=== PATIENT | female | born 1960 | race Caucasian/White ===

== ENCOUNTER → 2017-05-14 | Outpatient (CLI) | payer OTHER ==
--- NOTE | 2017-05-14 12:55 | WWHP ---
[facility] - HISTORY AND PHYSICAL DATE OF SERVICE: 05/14/2017 CHIEF COMPLAINT: The patient is here for her routine gynecologic exam. HPI: This is a 56-year-old G2, P-0-2-0 with an LMP of 06/2016. She states prior to her LMP, her menses were becoming less frequent. She has also been experiencing hot flashes during the last 1 to 2 years. She denies any vaginal bleeding since June of this year. PAST MEDICAL HISTORY: Elevated cholesterol. MEDICATIONS: 1. Lipitor 1 daily. 2. Vitamin D 1000 units every other day. ALLERGIES: No known drug allergies. PAST SURGICAL HISTORY: Colonoscopy in 2013, voluntary termination of x2. PAST TAX LAWYER HISTORY: She has no history of STDs. SOCIAL HISTORY: She previously rarely smokes cigarettes, but now denies any cigarette smoking. She has about 1 to 3 alcohol containing drinks per day and occasionally uses marijuana. She denies any other drug use. She is single and has been with her boyfriend for about 8 months, but does not live with him. She states they do not have sexual intercourse, but are sexual in other ways. 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 FAMILY HISTORY: Father had Parkinson's disease. Mother has diabetes and some memory problems. Uncle had renal failure. REVIEW OF SYSTEMS: She has lost about 11 pounds and she believes this has been from some dietary changes. She denies respiratory, cardiac or GI problems. PHYSICAL EXAM: Blood pressure 120/79, height 5 feet 2 inches, weight 146 pounds, BMI 27. Temperature 98.2, pulse 76. This is a well-developed, well-nourished, white female, who is alert and oriented x3, in no acute distress. HEENT is within normal limits. NECK: Supple without mass or thyromegaly. CHEST AND LUNGS: Clear to auscultation. HEART: Regular rate and rhythm. Breasts are without mass or discharge. Axillary exam is negative for adenopathy. Back negative for CVA tenderness. ABDOMEN: Soft, nontender, without palpable masses. PELVIC EXAM: External genitalia reveals mild atrophy without lesions. Cervix and vagina reveals mild atrophy without lesions. The cervix appears nulliparous and is slightly stenotic. There is no evidence of prolapse. Bimanual exam, the uterus is mid position nongravid size and nontender. There are no palpable adnexal masses or tenderness. Rectovaginal exam is negative for mass or tenderness and is negative for occult blood. EXTREMITIES: Nontender. IMPRESSION: A 56-year-old female in early menopause with normal gynecologic exam. PLAN: 1. Pap smear was performed. 2. Self breast examination was discussed. 3. Mammogram will be done today. 4. Osteoporosis prevention was discussed. 5. She was instructed to call if she has any periods or vaginal bleeding from here on out. 6. She will return in 1 year. MMODL / IJN: [id number] /
--- NOTE | 2017-05-15 14:35 | MM ---
Reason for exam: screening (asymptomatic). Last mammogram was performed 1 year and 1 month ago. History: Patient is nulliparous. Benign left breast aspiration of the left breast, September 15, 2013. Physical Findings: A clinical breast exam by your physician is recommended on an annual basis and results should be correlated with mammographic findings. MG Screening Mammo w CAD Bilateral CC and MLO view(s) were taken. Prior study comparison: April 18, 2016, bilateral MG diagnostic mammo w CAD [facility]. September 08, 2014, bilateral MG diagnostic mammo w CAD [facility]. September 01, 2013, CAD bilateral diagnostic mammogram. The breast tissue is heterogeneously dense. This may lower the sensitivity of mammography. Finding: There is a typically benign stable mass in the left breast dating back to 2013. No suspicious abnormality. No significant changes in finding since April 18, 2016, September 08, 2014, and September 01, 2013. ASSESSMENT: Benign, BI-RAD 2 RECOMMENDATION: Routine screening mammogram of both breasts in 1 year.
== END | disposition home or self-care (01) ==
LOC: WWCWWP 10:35
PROVIDERS: ATTEND Obstetrics & Gynecology
DX: Z12.31 Encounter for screening mammogram for malignant neoplasm of breast (principal)

== ENCOUNTER → 2018-10-20 | Outpatient (CLI) | payer OTHER ==
--- NOTE | 2018-10-22 11:48 | MM ---
Reason for exam: screening (asymptomatic). Last mammogram was performed 1 year and 5 months ago. History: Patient is postmenopausal and is nulliparous. Benign left breast aspiration of the left breast, September 15, 2013. Physical Findings: A clinical breast exam by your physician is recommended on an annual basis and results should be correlated with mammographic findings. MG Screening Mammo w CAD Bilateral CC and MLO view(s) were taken. Prior study comparison: May 14, 2017, bilateral MG screening mammo w CAD. April 18, 2016, bilateral MG diagnostic mammo w CAD [facility]. The breast tissue is heterogeneously dense. This may lower the sensitivity of mammography. There is chronic nodularity bilaterally. No significant changes when compared with prior studies. ASSESSMENT: Benign, BI-RAD 2 RECOMMENDATION: Routine screening mammogram of both breasts in 1 year.
== END ==
LOC: RADMAMWWP 09:26
PROVIDERS: ATTEND Internal Medicine
DX: Z12.31 Encounter for screening mammogram for malignant neoplasm of breast (principal)
CPT/HCPCS: 77067

== ENCOUNTER → 2020-01-28 | Outpatient (CLI) | payer OTHER ==
--- NOTE | 2020-02-01 11:40 | MM ---
Reason for exam: screening (asymptomatic). Last mammogram was performed 1 year and 3 months ago. History: Patient is postmenopausal and is nulliparous. Benign left breast aspiration of the left breast, September 15, 2013. Physical Findings: A clinical breast exam by your physician is recommended on an annual basis and results should be correlated with mammographic findings. MG Screening Mammo w CAD Bilateral CC and MLO view(s) were taken. Prior study comparison: October 20, 2018, bilateral MG screening mammo w CAD. May 14, 2017, bilateral MG screening mammo w CAD. The breast tissue is heterogeneously dense. This may lower the sensitivity of mammography. Benign appearing bilateral calcifications. There is chronic nodularity in the left breast. No significant changes when compared with prior studies. ASSESSMENT: Benign, BI-RAD 2 RECOMMENDATION: Routine screening mammogram of both breasts in 1 year.
== END | disposition home or self-care (01) ==
LOC: RADMAMWWP 14:29
PROVIDERS: ATTEND Internal Medicine
DX: Z12.31 Encounter for screening mammogram for malignant neoplasm of breast (principal)
CPT/HCPCS: 77067

== ENCOUNTER → 2021-04-10 | Outpatient (CLI) | payer OTHER ==
--- NOTE | 2021-04-12 08:09 | MM ---
Reason for exam: screening (asymptomatic). Last mammogram was performed 1 year and 2 months ago. History: Patient is postmenopausal and is nulliparous. Benign left breast aspiration of the left breast, September 15, 2013. Physical Findings: A clinical breast exam by your physician is recommended on an annual basis and results should be correlated with mammographic findings. MG 3D Screening Mammo W/Cad Bilateral CC and MLO view(s) were taken. Prior study comparison: January 28, 2020, bilateral MG screening mammo w CAD. October 20, 2018, bilateral MG screening mammo w CAD. May 14, 2017, bilateral MG screening mammo w CAD. April 18, 2016, bilateral MG diagnostic mammo w CAD [facility]. The breast tissue is heterogeneously dense. This may lower the sensitivity of mammography. There is chronic nodularity in the left breast. No significant changes when compared with prior studies. ASSESSMENT: Benign, BI-RAD 2 RECOMMENDATION: Routine screening mammogram of both breasts in 1 year.
== END | disposition home or self-care (01) ==
LOC: RADMAMWWP 14:41
PROVIDERS: ATTEND Internal Medicine
DX: Z12.31 Encounter for screening mammogram for malignant neoplasm of breast (principal)
CPT/HCPCS: 77063; 77067

== ENCOUNTER → 2022-02-20 | Outpatient (CLI) | payer OTHER ==
[2022-02-20 12:53] VITALS: BP 127/88; PULSE 85; RESP 17; TEMP 98.5
--- NOTE | 2022-02-20 13:39 | P.HPOB ---
History of Present Illness H&P Date: 02/20/22 Chief Complaint: The patient is here for her routine gynecologic exam. This is a 61-year-old with an LMP of 2017. She is here to reestablish with this office. She was last here in 2017. She is without gynecologic complaints and denies any postmenopausal bleeding. Review of Systems She has gained about 10 pounds over the past 2 years. She denies respiratory, cardiac, or GI problems. 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 History of Any Multi-Drug Resistant Organisms: None Reported Past Surgical History: Breast Surgery Additional Past Surgical History / Comment(s): Breast biopsy. Colonoscopy 2013. Past Anesthesia/Blood Transfusion Reactions: No Reported Reaction Past Psychological History: No Psychological Hx Reported Smoking Status: Current some day smoker (Smokes socially infrequently.) Past Alcohol Use History: Daily (About 3 beers per day) Past Drug Use History: Marijuana (Smokes marijuana daily.) Additional History: She is single and is not seeing anybody at this time. She is currently not working outside the home. - Past Family History Father Additional Family Medical History / Comment(s): Parkinson's disease. Mother Family Medical History: Diabetes Mellitus Additional Family Medical History / Comment(s): Memory problems. Maternal grandmother had lymphoma. Medications and Allergies Home Medications Medication Instructions Recorded Confirmed Type Atorvastatin [Lipitor] 20 mg PO DAILY 02/20/22 02/20/22 History Cholecalciferol [Vitamin D3 (25 1,000 mg PO DAILY 02/20/22 02/20/22 History Mcg = 1000 Iu)] Multivit-Min/Iron/Folic/Lutein 1 cap PO DAILY 02/20/22 02/20/22 History [Centrum Silver Women Tablet] Criders-3/Dha/Epa/Fish Oil [Fish Oil 1,000 mg PO DAILY 02/20/22 02/20/22 History 1,000 mg Softgel] Allergies Allergy/AdvReac Type Severity Reaction Status Date / Time No Known Allergies Allergy Unverified 02/20/22 12:47 Exam Vital Signs Temp Pulse Resp BP Pulse Ox 02/20/22 12:50 98.5 F 85 17 127/88 96 Intake and Output 02/19/22 02/20/22 02/20/22 22:59 06:59 14:59 Other: Weight 73.936 kg Height 5 feet 2 inches, weight 163 pounds, BMI 29.8. This is a well-developed well-nourished white female who is alert and oriented times 3 in no acute distress. HEENT: Within normal limits. NECK: Supple without mass or thyromegaly. CHEST AND LUNGS: Clear to auscultation. HEART: Regular rate and rhythm. BREASTS: Are without mass or discharge. AXILLARY EXAM: Negative for adenopathy. BACK: Negative for CVA tenderness. ABDOMEN: Soft, nontender, without palpable masses. PELVIC EXAM: Normal external genitalia with mild atrophy. Cervix and vagina appear normal with mild atrophy. There is no unusual discharge. There is no evidence of prolapse. The uterus is midposition, nongravid size and nontender. There are no palpable adnexal masses or tenderness. RECTAL EXAM: Rectovaginal exam is negative for mass or tenderness and is negative for occult blood. EXTREMITIES: Nontender. IMPRESSION: 1. 61-year-old menopausal female with normal gynecologic exam. PLAN: 1. Pap smear cotest was performed. 2. Self breast awareness was discussed with the patient. We have also discussed symptoms associated with inflammatory breast cancer. 3. Screening mammogram will be due in March. The order slip was given to the patient for this. Her last one done on 04/10/2021 was benign. 4. Osteoporosis prevention was discussed. I have stressed the importance of adequate calcium, vitamin D and regular exercise. Recommended amounts of calcium and vitamin D were also discussed. Bone density screening was recommended and the order slip was given to the patient for this. She states she will probably have this done at the time of her mammogram in March. 5. She has completed her Covid vaccination series and has received 2 boosters. 6. She was advised to return in one year for her annual well woman exam.
== END ==
LOC: WWCWWP 12:35
PROVIDERS: ATTEND Obstetrics & Gynecology
DX: Z01.419 Encounter for gynecological examination (general) (routine) without abnormal findings (principal); E78.5 Hyperlipidemia, unspecified; F17.200 Nicotine dependence, unspecified, uncomplicated

== ENCOUNTER → 2022-03-28 | Outpatient (CLI) | payer OTHER ==
--- NOTE | 2022-03-28 11:49 | XR ---
EXAMINATION TYPE: XR Hip RT and AP Pelvis DATE OF EXAM: 03/28/2022 8:11 AM INDICATION: Patient age:Female; 61 years old; Reason for study: PAIN; PHH. COMPARISON: None. TECHNIQUE: The right hip was examined in the frontal and lateral projections and a AP pelvis. FINDINGS: Moderate joint space narrowing of the right hip with sclerosis of the acetabulum. No convin cing evidence for acute fracture. Soft tissues are grossly unremarkable. IMPRESSION: Marked severe osteoporotic degeneration changes of the right hip
[2022-03-28 18:18] LABS: Basophils # (A) 0.02 X 10*3/uL (0.00-0.10); Basophils % (A) 0.5 %; Eosinophils # (A) 0.04 X 10*3/uL (0.04-0.35); Eosinophils % (A) 0.9 %; HCT 40.5 % (37.2-46.3); HGB 13.7 g/dL (12.0-15.0); Immature Grans, Automated 0.2 %; Lymphocytes % (A) 30.7 %; MCH 31.1 pg (27.0-32.0); MCHC 33.8 g/dL (32.0-37.0); MCV 91.8 fL (80.0-97.0); Mean Platelet Volume 10.1 fL (9.5-12.2); Monocytes % (A) 7.1 %; NRBC Per 100 WBC 0 /100 WBCS (0.0-0.0); Neutrophils # (A) 2.57 X 10*3/uL (1.80-7.70); Neutrophils % (A) 60.6 %; Platelet Count 225 X 10*3/uL (140-440); RBC 4.41 X 10*6/uL (4.10-5.20); WBC 4.24 X 10*3/uL (4.50-10.00)
[2022-03-28 18:28] LABS: ALT 19 U/L (8-44); AST 22 U/L (13-35); African American GFR (CKD) 107.6 (60.0-200.0); Albumin 4.4 g/dL (3.8-4.9); Albumin/Globulin Ratio 1.91 (1.60-3.17); Alkaline Phosphatase 94 U/L (41-126); BUN/Creat Ratio 12.71 Ratio (12.00-20.00); Blood Urea Nitrogen 8.9 mg/dL (9.0-27.0); C Reactive Protein <0.30 mg/dL (0.00-0.80); Calcium 9.2 mg/dL (8.7-10.3); Carbon Dioxide 26.9 mmol/L (20.0-27.5); Chloride 101 mmol/L (96-109); Creatine Kinase 95 U/L (26-186); Globulin 2.3 g/dL (1.6-3.3); Glucose 102 mg/dL (70-110); Non-African American GFR(CKD) 92.9 (60.0-200.0); Phosphorus 3.3 mg/dL (2.4-5.1); Potassium 4.3 mmol/L (3.5-5.5); Sodium 140 mmol/L (135-145); Total Protein 6.7 g/dL (6.2-8.2)
[2022-03-28 18:43] LABS: Chol/HDL Ratio 3.08 Ratio; LDL Cholesterol,Calculated 118.1 mg/dL (0.0-131.0)
[2022-03-28 19:22] LABS: Erythrocyte Sedimentation Rate 6 mm/Hr (0-30)
== END | disposition home or self-care (01) ==
LOC: LABWHC1 10:31
PROVIDERS: ATTEND Internal Medicine
DX: Z00.00 Encounter for general adult medical examination without abnormal findings (principal); D64.9 Anemia, unspecified; E78.5 Hyperlipidemia, unspecified; E55.9 Vitamin D deficiency, unspecified; M24.851 Other specific joint derangements of right hip, not elsewhere classified
CPT/HCPCS: 36415; 73502; 80053; 80061; 82306; 82550; 83735; 84100; 84443; 85025; 85652; 86140

== ENCOUNTER → 2022-05-24 | Outpatient (CLI) | payer OTHER ==
--- NOTE | 2022-05-25 18:14 | MM ---
Reason for Exam: Screening (asymptomatic). Last mammogram was performed 1 year(s) and 2 month(s) ago. Patient History: Menarche at age 14. Patient has no children. Postmenopausal. 09/15/2013, Benign Cyst Aspiration on the left side. Risk Values: Nena 5 year model risk: 1.5%. NCI Lifetime model risk: 7.0%. Prior Study Comparison: 10/20/2018 Bilateral Screening Mammogram, [facility]. 01/28/2020 Bilateral Screening Mammogram, [facility]. 04/10/2021 Bilateral Screening Mammogram, [facility]. Tissue Density: There are scattered fibroglandular densities. Findings: Analyzed By CAD. Chronic nodularity left breast. There is no suspicious group of microcalcifications or new suspicious mass in either breast. Overall Assessment: Benign, BI-RAD 2 Management: Screening Mammogram of both breasts in 1 year. 1. Patient should continue monthly self breast exams. 2. A clinical breast exam by your physician is recommended on an annual basis. 3. This exam should not preclude additional follow-up of suspicious palpable abnormalities. Electronically signed and approved by: Hima Larios M.D. Radiologist
== END | disposition home or self-care (01) ==
LOC: RADMAMWWP 13:12
PROVIDERS: ATTEND Obstetrics & Gynecology
DX: Z12.31 Encounter for screening mammogram for malignant neoplasm of breast (principal); Z78.0 Asymptomatic menopausal state
CPT/HCPCS: 77063; 77067

== ENCOUNTER → 2022-09-20 | Outpatient (CLI) | payer OTHER ==
--- NOTE | 2022-09-20 12:46 | BD ---
EXAMINATION TYPE: Axial Bone Density DATE OF EXAM: 09/20/2022 CLINICAL HISTORY: 62 years old Female. ICD-10 CODE: Z78.0 POST MENOPAUSAL Height: 61.3 Weight: 162 FRAX RISK QUESTIONS: nothing to note here RISK FACTORS HISTORY OF: Postmenopausal woman: yes at about, 54 yrs old Hyperparathyroidism: no Adrenal Insufficiency: no MEDICATIONS: Additional Medications: statin for cholesterol, vit d Additional History: cholesterol, EXAM MEASUREMENTS: Bone mineral densitometry was performed using the [employer] System. Bone mineral density as measured about the Lumbar spine is: ----- L1-L4(G/cm2): 1.304 T Score Values are as follows: ----- L1: 0.9 ----- L2: 0.4 ----- L3: 1.5 ----- L4: 1.0 ----- L1-L4: 1.0 Z Score Values are as follows: ----- L1: 2.1 ----- L2: 1.6 ----- L3: 2.7 ----- L4: 2.2 ----- L1-L4: 2.2 Bone mineral density baseline study Bone mineral density about the R hip (g/cm2): 1.136 Bone mineral density about the L hip (g/cm2): 1.139 T Score values are as follows: -----R Neck: 1.3 -----L Neck: 0.5 -----R Total: 1.0 -----L Total: 1.0 Z Score values are as follows: -----R Neck: 2.5 -----L Neck: 1.7 -----R Total: 1.9 -----L Total: 1.9 Bone mineral density baseline study FRAX%s: The graph provided illustrates a 5.8% chance for a major osteoporotic fx and a 0.1% chance fo r the hips probability for fx in 10 years time. IMPRESSION: Normal (Values between +1 and -1 indicate normal bone mass). Consider repeating this study in 5 year s or sooner if there is some new clinical indication. NOTE: T-SCORE=SD OF THE YOUNG ADULT MEAN.
== END | disposition home or self-care (01) ==
LOC: RADBDWWP 09:08
PROVIDERS: ATTEND Obstetrics & Gynecology
DX: Z78.0 Asymptomatic menopausal state (principal)
CPT/HCPCS: 77080

== ENCOUNTER 2023-02-22 08:31 | Day surgery (SDC) | payer OTHER ==
[2023-02-21 12:23] VITALS: BMI 29.8
[2023-02-22] MEDS ORDERED: LIDOCAINE 1% (10MG/ML) FOR IV START INTRADERMA PRN (09:51)
[2023-02-22] MEDS ORDERED: LACTATED RINGERS 1,000 ML IV SCH (09:51)
[2023-02-22] MEDS ORDERED: ONDANSETRON 4 MG/2 ML VIAL IVP PRN (09:51)
[2023-02-22 10:20] VITALS: TEMP 97.6
[2023-02-22] MEDS ORDERED: PROPOFOL 10 MG/ML 20 ML VIAL IV ONE (10:45)
--- NOTE | 2023-02-22 11:07 | P.PCN ---
Date of Procedure: 02/22/23 Procedure(s) Performed: BRIEF HISTORY: Patient is a 62-year-old pleasant white female scheduled for an elective colonoscopy as a part of prior history of colon polyps. Last colonoscopy was 15 years ago. PROCEDURE PERFORMED: Colonoscopy. PREOPERATIVE DIAGNOSIS: History of colon polyps. IV sedation per Anesthesia. PROCEDURE: After informed consent was obtained, the patient, was brought into the endoscopy unit. IV sedation was administered by Anesthesia under continuous monitoring. Digital rectal examination was normal. Initially the Olympus CF-160 flexible video colonoscope was then inserted in the rectum, gradually advanced into the cecum without any difficulty. Careful examination was performed as the scope was gradually being withdrawn. Ileocecal valve and the appendiceal orifice were visualized and appeared normal. Prep was excellent. Mucosa of the cecum, ascending colon, transverse colon, descending colon, sigmoid colon, and rectum appeared normal. Scattered sigmoid diverticulosis. Retroflexion was performed in the rectum and no lesions were seen. The patient tolerated the procedure well. IMPRESSION: Normal-appearing colon from rectum to cecum with no evidence of colorectal neoplasia Scattered sigmoid diverticulosis. . RECOMMENDATIONS: Findings of this examination were discussed with the patient as well as a family.. She was advised to have a repeat screening colonoscopy in 10 years.
[2023-02-22 11:14] VITALS: PULSE 78; RESP 18
[2023-02-22 11:41] VITALS: BP 115/76
== END 2023-02-22 11:42 | disposition home or self-care (01) ==
LOC: ORWHC2ENDO 08:31
PROVIDERS: ATTEND Internal Medicine Gastroenterology
DX: Z12.11 Encounter for screening for malignant neoplasm of colon (principal); K57.30 Diverticulosis of large intestine without perforation or abscess without bleeding; E78.5 Hyperlipidemia, unspecified; E07.9 Disorder of thyroid, unspecified; Z86.010 Personal history of colon polyps; Z79.899 Other long term (current) drug therapy
CPT/HCPCS: 45378; J2704

== ENCOUNTER → 2023-07-19 | Outpatient (CLI) | payer OTHER ==
--- NOTE | 2023-07-22 09:28 | MM ---
Reason for Exam: Screening (asymptomatic). Last mammogram was performed 1 year(s) and 1 month(s) ago. Patient History: Menarche at age 14. Patient has no children. Postmenopausal. 09/15/2013, Benign Cyst Aspiration on the left side. Risk Values: Nena 5 year model risk: 1.6%. NCI Lifetime model risk: 6.6%. Prior Study Comparison: 01/28/2020 Bilateral Screening Mammogram, [facility]. 04/10/2021 Bilateral Screening Mammogram, [facility]. 05/24/2022 Bilateral MG 3D screening mammo w/cad, [facility]. Tissue Density: The breast tissue is heterogeneously dense. This may lower the sensitivity of mammography. Findings: Analyzed By CAD. There is no suspicious group of microcalcifications or new suspicious mass in either breast. Overall Assessment: Benign, BI-RAD 2 Management: Screening Mammogram of both breasts in 1 year. . Patient should continue monthly self-breast exams. A clinical breast exam by your physician is recommended on an annual basis. This exam should not preclude additional follow-up of suspicious palpable abnormalities. Note on Nena scores and lifetime risk: 1. A Nena score greater than 3% is considered moderate risk. If this is the case, consider specialist referral to assess eligibility for a risk reducing agent. 2. If overall lifetime risk for the development of breast cancer is 20% or higher, the patient may qualify for future screening with alternating mammogram and breast MRI. Electronically signed and approved by: Mukesh Antonio M.D. Radiologis
== END | disposition home or self-care (01) ==
LOC: RADMAMWWP 12:37
PROVIDERS: ATTEND Internal Medicine
DX: Z12.31 Encounter for screening mammogram for malignant neoplasm of breast (principal); Z78.0 Asymptomatic menopausal state
CPT/HCPCS: 77063; 77067

== ENCOUNTER → 2024-09-03 | Outpatient (CLI) | payer MEDICARE ==
[2024-09-03 18:32] LABS: Basophils # (A) 0.02 X 10*3/uL (0.00-0.10); Basophils % (A) 0.4 %; Eosinophils # (A) 0.08 X 10*3/uL (0.04-0.35); Eosinophils % (A) 1.5 %; HCT 42.1 % (37.2-46.3); HGB 14.2 g/dL (12.0-15.0); Lymphocytes # (A) 1.31 X 10*3/uL (0.90-5.00); Lymphocytes % (A) 24.7 %; MCH 30.7 pg (27.0-32.0); MCHC 33.7 g/dL (32.0-37.0); MCV 91.1 FL (80.0-97.0); Mean Platelet Volume 10.2 FL (9.5-12.2); Monocytes % (A) 7.5 %; NRBC Per 100 WBC 0 X 10*3/uL (0.00-0.01); Neutrophils # (A) 3.49 X 10*3/uL (1.80-7.70); Neutrophils % (A) 65.7 %; Platelet Count 255 X 10*3/uL (140-440); RBC 4.62 X 10*6/uL (4.10-5.20); RDW 11.9 % (11.5-14.5); WBC 5.31 X 10*3/uL (4.50-10.00)
== END | disposition home or self-care (01) ==
LOC: LABWHC1 12:38
PROVIDERS: ATTEND Internal Medicine
DX: M16.9 Osteoarthritis of hip, unspecified (principal)
CPT/HCPCS: 36415; 85025

== ENCOUNTER → 2024-11-04 | Outpatient (CLI) | payer MEDICARE ==
[2024-11-04 15:25] LABS: ALT 28 U/L (8-44); AST 27 U/L (13-35); Chol/HDL Ratio 2.82 Ratio; LDL Cholesterol,Calculated 100.2 mg/dL (0.0-131.0)
== END | disposition home or self-care (01) ==
LOC: LABWHC1 09:01
PROVIDERS: ATTEND Internal Medicine
DX: E78.5 Hyperlipidemia, unspecified (principal)
CPT/HCPCS: 36415; 80061; 84450; 84460